=== PATIENT | female | born 1990 | race Caucasian/White ===

== ENCOUNTER 2025-08-12 08:50 | Emergency (ER) | payer MEDICAID ==
[~2025-08-12] VITALS: Ht 149.9 cm; Wt 77.7 kg
[2025-08-12 08:53] VITALS: TEMP 97.7
--- NOTE | 2025-08-12 09:33 | Physician Documentation ---
History of Present Illness ~ Chief Complaint: Ear Pain Stated Complaint: EAR PAIN Time Seen by MD: 08:59 HPI 35-year-old female presenting with left ear pain She tells me that for the past couple of days she has had pain in her left ear. She states it hurts around the external ear canal region. She reports mild dizziness and decreased hearing. Fevers or chills. No recent viral infections. No swimming. No other related symptoms. No history of recurrent ear infections. She has been putting olive in her ear to try and help. Medication Reconciliation Allergies: Coded Allergies: No Known Allergies (Unverified , 08/12/25) Review of Systems Constitutional: Denies: fever ENT: Reports: ear pain, hearing loss Physical Exam Vital Signs: Temperature: 97.7, Source: Temporal, Heart Rate: 86, Respiratory Rate: 18, BP: 119/78, Pulse Oximetry: 96, Weight: 77.700 Oxygen Flow Rate: 0 Physical Exam General: This is a young healthy appearing female, sitting calmly in bed HEENT: Atraumatic, oropharynx is moist Right ear: The external ear canal appears normal, there was ear wax partially obscuring the tympanic membrane, but no erythema or swelling to the TM Left ear: The patient does have some tenderness on palpation of the external ear and ear canal region. There is swelling and erythema to the external canal. It is difficult to visualize the tympanic membrane. No mastoid tenderness. Heart: Regular rate, normal-appearing peripheral perfusion Lungs: normal work of breathing, normal oxygen saturation on room air Neuro: Alert and oriented Psychiatric: Calm and cooperative with exam Progress Results/Orders Results/Orders Orders - MARIA DEL ROSARIO GOLD MD Cipro 0.3%/Dexameth 0.1% Otic (Ciproflox (08/12/25 20:00) Vital Signs 08/12/25 08:53 Temp 97.7 Pulse 86 Resp 18 B/P (MAP) 119/78 Pulse Ox 96 O2 Flow Rate 0 Medical Decision Making Additional information obtaine: N/A Findings na Ear Diff. Dx: Considerations: Include: Cerumen impaction, Otitis externa, Otitis media Eye Diff. Dx: Considerations: Unlikely: Glaucoma Nose Diff. Dx: Considerations: Unlikely: Fracture-septum Tooth Diff. Dx: Considerations: Unlikely: Periodontal abscess Throat Diff Dx: Considerations: Unlikely: Herpes simplex Additional Comment The patient presents with ear pain. She has findings consistent with otitis externa. No fevers or systemic symptoms. An ear wick was placed and she was given topical antibiotic drops. She will follow up next week with her primary clinic for a recheck of her ear, or return if she has worsening symptoms. Departure Time of Disposition: 09:33 Disposition: 01 HOME / SELF CARE / HOMELESS Impression: Primary Impression: Otitis externa Discharge Instructions: Otitis Externa Referrals: NO PRIMARY CARE PROVIDER (PCP) Education Educated: Patient Educated regarding: diagnosis, treatment, need for follow up Signature Scribe Signature: na Attestation: MARIA DEL ROSARIO Saldivar MD Aug 12, 2025 09:33
[2025-08-12] MEDS: CIPROFLOXACIN HCL/DEXAMETH 7.5 ML DROPS.SUSP EACH EAR ONE (09:52)
[2025-08-12 09:55] VITALS: BP 115/77; PULSE 89; RESP 16; O2SAT 98
== END 2025-08-12 09:58 | disposition home or self-care (01) ==
LOC: ER 08:51
DX: H60.92 Unspecified otitis externa, left ear (principal)
CPT/HCPCS: 99282; 99283